=== PATIENT | female | born 1970 | race Two or more races ===

== ENCOUNTER 2017-06-08 15:56 | Emergency (ER) | payer BC ==
[~2017-06-08] VITALS: Ht 157.5 cm; Wt 71.7 kg
[2017-06-08 16:02] VITALS: BP 128/70
== END 2017-06-08 16:56 | disposition home or self-care (01) ==
LOC: ER 16:00
DX: H10.13 Acute atopic conjunctivitis, bilateral (principal); J30.9 Allergic rhinitis, unspecified